=== PATIENT | female | born 1970 | race Caucasian/White ===

== ENCOUNTER 2018-04-10 19:45 | Emergency (ER) | payer MEDICARE, OTHER ==
[~2018-04-10] VITALS: Ht 167.6 cm; Wt 99.8 kg
[~2018-04-10 19:45] MED LIST: ALLOPURINOL 10100 M1 PO; BACTRIM DS TAB1 EACH PO; BUSPIRONE HCL10 MG PO; CALCIUM 500 +1 EAC4 PO; CIPROFLOXACIN500 M1 PO; CYMBALTA30 MG PO; CYMBALTA60 MG PO; DIPHENHIST25 MG PO; DIPHENHIST50 MG PO; DUONEB 2.5-0.5 M3 ML INH; FOLIC ACID0.4 MG PO; GABAPENTIN 100100 MG PO; HYDROXYZINE HCL25 M2 PO; IBUPROFEN 800800 MG PO; KEFLEX500 MG PO; LASIX 40 MG TAB40 M1 PO; LASIX 80 MG TAB80 MG PO; LATUDA80 MG PO; LEVAQUIN 500 M500 M2 PO; LEVAQUIN 500 M500 MG PO; LEVOTHYROXINE 0.1 MG PO; LISINOPRIL-HCT1 EAC1 PO; MAGNESIUM OXID400 MG PO; MAGOX 400400 MG PO; MEDROL DOSPAK21 TA1 PO; MEDROLDOSEPACK PO; NORFLEX100 MG PO; OXYCODONE HCL E10 MG PO; PAXIL20 MG PO; PERCOCET 10-321 EACH PO; POTASSIUM 25 M25 MEQ PO; POTASSIUM20; POTASSIUM20 PO; PRAZOSIN HCL1 MG PO; PRAZOSIN HCL2 MG PO; PROPANEDIOL100 ML MC; PROPRANOLOL 1010 MG PO; ROBAXIN 750 MG750 M1 PO; ROCALTROL0.25 MCG PO; TOPAMAX50 MG PO; TRADJENTA5 MG PO; XANAX 0.25 MG0.25 MG PO; XANAX1 MG PO; ZANAFLEX4 MG PO; ZOFRAN4 MG PO; ZPAK PO
[2018-04-10 20:17] LABS: ABSOLUTE EOSINOPHILS 0.2 thou/uL (0.0-0.7); ABSOLUTE LYMPHOCYTES 3.1 thou/uL (0.8-5.3); ABSOLUTE MONOCYTES 0.7 thou/uL (0.0-1.2); ABSOLUTE NEUTROPHILS 3.6 thou/uL (1.6-8.1); BASOPHILS 0.6 %; EOSINOPHILS 2.2 %; HEMATOCRIT 36.2 % (37.0-47.0); HEMOGLOBIN 11.6 gm/dL (12.0-15.0); LYMPHOCYTES 40.6 %; MCH 31.5 pg (26.0-34.0); MCV 98.6 fL (80.0-100.0); MONOCYTES 8.7 %; MPV 7.1 fl. (7.2-11.1); NUCLEATED RBCS 0 /100WBC; PLATELET COUNT* 192 thou/uL (150-400); POLYS 47.9 %; RBC 3.68 mil/uL (4.20-5.00); RDW-CV 17.1 % (10.5-14.5); WBC 7.6 thou/uL (4.0-11.0)
[2018-04-10 20:26] LABS: CALCIUM 7.7 mg/dL (8.5-10.1); POTASSIUM 4.1 mmol/L (3.5-5.1)
[2018-04-10 20:30] LABS: ALBUMIN 1.4 g/dL (3.4-5.0); TOTAL BILIRUBIN 0.4 mg/dL (<0.1-1.0); TOTAL PROTEIN 6.1 g/dL (6.4-8.2)
[2018-04-10 21:01] VITALS: BP 102/78
== END 2018-04-10 21:03 | disposition home or self-care (01) ==
LOC: M.ERS 19:45
PROVIDERS: Emergency Medicine
DX: Z71.1 Person with feared health complaint in whom no diagnosis is made (principal); I10 Essential (primary) hypertension; F41.0 Panic disorder [episodic paroxysmal anxiety]; F31.9 Bipolar disorder, unspecified; Z99.2 Dependence on renal dialysis; Z88.0 Allergy status to penicillin; Z88.6 Allergy status to analgesic agent; Z91.041 Radiographic dye allergy status; Z88.8 Allergy status to other drugs, medicaments and biological substances

== ENCOUNTER 2018-11-23 15:05 | Emergency (ER) | payer MEDICARE ==
[~2018-11-23] VITALS: Ht 167.6 cm; Wt 119.3 kg
[2018-11-23 18:47] LABS: ABSOLUTE BASOPHILS 0.1 thou/uL (0.0-0.2); ABSOLUTE EOSINOPHILS 0.3 thou/uL (0.0-0.7); ABSOLUTE LYMPHOCYTES 2.6 thou/uL (0.8-5.3); ABSOLUTE MONOCYTES 0.8 thou/uL (0.0-1.2); ABSOLUTE NEUTROPHILS 4.7 thou/uL (1.6-8.1); BASOPHILS 0.9 %; EOSINOPHILS 3.8 %; HEMATOCRIT 37.9 % (37.0-47.0); HEMOGLOBIN 12.4 gm/dL (12.0-15.0); LYMPHOCYTES 30.5 %; MCH 29.4 pg (26.0-34.0); MCHC 32.6 g/dL (28.0-37.0); MCV 90.4 fL (80.0-100.0); MONOCYTES 9.5 %; MPV 7.7 fl. (7.2-11.1); NUCLEATED RBCS 0 /100WBC; PLATELET COUNT* 170 thou/uL (150-400); POLYS 55.3 %; RDW-CV 16.3 % (10.5-14.5); WBC 8.5 thou/uL (4.0-11.0)
[2018-11-23 19:04] LABS: CREATININE 5.9 mg/dL (0.6-1.3); POTASSIUM 5.1 mmol/L (3.5-5.1)
[2018-11-23 19:08] LABS: ALBUMIN 3.6 g/dL (3.4-5.0); TOTAL BILIRUBIN 0.4 mg/dL (<0.1-1.0); TOTAL PROTEIN 7.9 g/dL (6.4-8.2)
[2018-11-23 20:41] VITALS: BP 147/105
== END 2018-11-23 20:42 | disposition left against medical advice (07) ==
LOC: M.ERS 15:05
PROVIDERS: Personal Emergency Response Attendant
DX: I12.0 Hypertensive chronic kidney disease with stage 5 chronic kidney disease or end stage renal disease (principal); N18.6 End stage renal disease; R53.1 Weakness; F31.9 Bipolar disorder, unspecified; F41.0 Panic disorder [episodic paroxysmal anxiety]; Z99.2 Dependence on renal dialysis; F17.210 Nicotine dependence, cigarettes, uncomplicated; Z91.041 Radiographic dye allergy status; Z88.0 Allergy status to penicillin; Z88.6 Allergy status to analgesic agent; Z88.8 Allergy status to other drugs, medicaments and biological substances